=== PATIENT | male | born 1970 | race Caucasian/White ===

== ENCOUNTER 2016-08-07 07:11 | Emergency (ER) | payer OTHER ==
--- NOTE | 2016-08-07 07:20 | CPEKG ---
Heart Rate: 72 RR Interval: 833 P-R Interval: 152 QRSD Interval: 92 QT Interval: 408 QTC Interval: 447 P [place]: 59 QRS [place]: 2 T Wave [place]: 39 EKG Severity - NORMAL ECG - EKG Impression: SINUS RHYTHM Electronically Signed By: José Luis Whitfield 07-Aug-2016 10:34:09
--- NOTE | 2016-08-07 07:21 | EDPHY ---
H & P Time Seen by Provider: 08/07/16 07:20 HPI/ROS: CHIEF COMPLAINT: Almost fainted HISTORY OF PRESENT ILLNESS: This 46-year-old man had cardiac arrest in July 2015 followed by bypass surgery. He did have admission for near syncope in December of this year which was felt to be due to medications. Yesterday he had an episode which lasted a couple minutes at 11:00 a.m. of feeling short of breath with some palpitations while walking at the same trach at the same gym where he was in 2014 when he started having symptoms before his cardiac arrest. Today he was cleaning some blood off of his dental implant when he felt lightheaded and near syncopal and EMS was called. No shortness of breath or chest pain. No actual syncope. REVIEW OF SYSTEMS: Eye: no change in vision ENT: no sore throat Cardiac: no chest pain or syncope Pulmonary: no cough or SOB Abdomen: no vomiting, diarrhea, abdominal pain Musculoskeletal: no back pain Skin: no rash Neuro: no headache Constitutional: no fever, more tired this month than usual. : no urinary symptoms A comprehensive 10 point review of systems is otherwise negative aside from elements mentioned in the history of present illness. PAST MEDICAL HISTORY: Includes reviewing discharge summary dated 12/20/2015. 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 Social history: Nonsmoker, . Wellness Health Coach is Reginald Witt General Appearance: Alert and conversant, cooperative. Eyes: No scleral icterus. ENT, Mouth: Normal mucous membranes. Respiratory: Normal respiratory effort, breath sounds equal, lungs are clear to auscultation. Cardiovascular: Regular rate and rhythm. Gastrointestinal: Abdomen is soft and non tender. Neurological: Alert and oriented x3. Normally conversant. Face symmetric, normal movement and sensation in all extremities. Skin: Warm and dry, no rashes. Musculoskeletal: No peripheral edema and no joint swelling. No calf tenderness. Psychiatric: Not agitated. Emergency Department course/MDM: EKG is normal. Plan for troponin discussion with his tobacco baler. 850: Patient's symptoms from today certainly sound more likely to be vasovagal in nature. He was looking at his bloody dental implant when he felt lightheaded , but did not actually have syncope. His EKG and troponin are negative and he is approximately 1 year out from bypass surgery. Discussed with Reji singh; requesting recommendations on further evaluation given his complicated cardiac history. Dr. Mendoza personally evaluated the patient in the emergency department and recommended discharge with outpatient stress echo arranged for tomorrow. Smoking Status: Never smoked Constitutional: Initial Vital Signs Temperature (C) 36.8 C 08/07/16 07:23 Heart Rate 71 08/07/16 07:23 Respiratory Rate 17 08/07/16 07:23 Blood Pressure 176/110 H 08/07/16 07:23 O2 Sat (%) 96 08/07/16 07:23 O2 Delivery Mode Room Air Allergies/Adverse Reactions: amlodipine besylate [From [facility]] Allergy (Severe, Verified 08/14/15 07:05) LIP EDEMA gluten Allergy (Unknown, Verified 08/14/15 07:05) wheat Allergy (Unknown, Verified 08/14/15 07:05) zolpidem Allergy (Verified 08/07/16 07:18) Home Medications: Medication Instructions Recorded Mycophenolate Mofetil [Cellcept] 1,000 mg PO BID 01/27/15 Clopidogrel Bisulfate [Plavix (*)] 75 mg PO DAILY 08/14/15 Ascorbic Acid [Vitamin C 500 mg 500 mg PO DAILY 12/20/15 (*)] Aspirin [Aspirin 81mg (*)] 81 mg PO DAILY@199912/20/15 Cholecalciferol Vit D3 [Vitamin D3 4,000 units PO DAILY 12/20/151999 units] Diltiazem Cd [Cardizem ER 120 MG 120 mg PO DAILY #0 cap 12/20/15 (*)] Ezetimibe [Zetia 10 MG (*)] 10 mg PO DAILY 12/20/15 Famotidine [Pepcid] 40 mg PO DAILY 12/20/15 Herbals/Supplements -Info Only 1 ea PO DAILY 12/20/15 Metoprolol Tartrate [Lopressor 25 25 mg PO DAILY20 #0 tab 12/20/15 mg (*)] Rosuvastatin Calcium [Crestor 20mg 10 mg PO DAILY 12/20/15 (*)] Sertraline HCl [Zoloft 50mg (*)] 50 mg PO DAILY 12/20/15 Zinc Gluconate [Zinc Chelated 50mg 50 mg PO DAILY 12/20/15 (*)] cycloSPORINE, MODIFIED [Gengraf] 75 mg PO BID 12/20/15 predniSONE 5 mg PO Q2D 12/20/15 Eszopiclone [Lunesta] 08/07/16 Losartan Potassium 08/07/16 Medical Decision Making - Diagnostics EKG Interpretation: 12-lead EKG interpreted by me; official reading is in trace master. My interpretation is sinus rhythm, normal, no acute ischemic changes. Differential Diagnosis: Differential considered including but not limited to vasovagal episode, malignant dysrhythmia, atrial fibrillation, orthostasis. Consult/Admit Bed Type: [address] - Data Points Laboratory Results: Laboratory Results 08/07/16 07:30 08/07/16 07:30 08/07/16 07:30 WBC 6.14 10^3/uL (3.80-9.50) RBC 5.18 10^6/uL (4.40-6.38) Hgb 17.1 g/dL (13.7-17.5) Hct 49.9 % (40.0-51.0) MCV 96.3 fL (81.5-99.8) MCH 33.0 pg (27.9-34.1) MCHC 34.3 g/dL (32.4-36.7) RDW 12.0 % (11.5-15.2) Plt Count 226 10^3/uL (150-400) MPV 9.7 fL (8.7-11.7) Neut % (Auto) 58.1 % (39.3-74.2) Lymph % (Auto) 30.9 % (15.0-45.0) [place] % (Auto) 8.8 % (4.5-13.0) Eos % (Auto) 1.5 % (0.6-7.6) Baso % (Auto) 0.5 % (0.3-1.7) Nucleat RBC Rel Count 0.0 % (0.0-0.2) Absolute Neuts (auto) 3.57 10^3/uL (1.70-6.50) Absolute Lymphs (auto) 1.90 10^3/uL (1.00-3.00) Absolute Monos (auto) 0.54 10^3/uL (0.30-0.80) Absolute Eos (auto) 0.09 10^3/uL (0.03-0.40) Absolute Basos (auto) 0.03 10^3/uL (0.02-0.10) Absolute Nucleated RBC 0.00 10^3/uL (0-0.01) Immature Gran % 0.2 % (0.0-1.1) Immature Gran # 0.01 10^3/uL (0.00-0.10) Sodium 144 mEq/L (134-144) Potassium 3.8 mEq/L (3.5-5.2) Chloride 103 mEq/L (97-110) Carbon Dioxide 27 mEq/l (22-31) Anion Gap 14 mEq/L (8-16) BUN 17 mg/dL (7-23) Creatinine 1.1 mg/dL (0.7-1.3) Estimated GFR > 60 Glucose 91 mg/dL (70-100) Calcium 9.7 mg/dL (8.5-10.4) Total Bilirubin 0.9 mg/dL (0.1-1.4) AST 30 IU/L (17-59) ALT 31 IU/L (21-72) Alkaline Phosphatase 73 IU/L (38-126) Troponin I < 0.012 ng/mL (0-0.034) Total Protein 8.1 g/dL (6.3-8.2) Albumin 4.9 g/dL (3.5-5.0) Departure - Departure Disposition: Home, Routine, Self-Care Clinical Impression: Near syncope Instructions: Near Syncope (ED) Additional Instructions: Stress test scheduled tomorrow at 1:15 p.m., instructions per Dr. Mendoza. Referrals: Reginald Witt MD [Medical Doctor] - As per Instructions
[2016-08-07 07:40] LABS: % IMMATURE GRANULYOCYTES 0.2 % (0.0-1.1); ABSOLUTE IMMATURE GRANULOCYTES 0.01 10^3/uL (0.00-0.10); ADD DIFF? NO; ADD MORPH? NO; ADD SCAN? NO; ATYPICAL LYMPHOCYTE FLAG 0 (0-99); FRAGMENT RBC FLAG 0 (0-99); HEMATOCRIT 49.9 % (40.0-51.0); HEMOGLOBIN 17.1 g/dL (13.7-17.5); LEFT SHIFT FLG 0 (0-99); LIPEMIA HEMOLYSIS FLAG 90 (0-99); MEAN CELL HEMOGLOBIN CONCENTR. 34.3 g/dL (32.4-36.7); MEAN CELL VOLUME 96.3 fL (81.5-99.8); MEAN PLATELET VOLUME 9.7 fL (8.7-11.7); PLATELET CLUMPS FLAG 0 (0-99); PLATELET COUNT 226 10^3/uL (150-400); RED BLOOD CELL COUNT 5.18 10^6/uL (4.40-6.38)
[2016-08-07 08:04] LABS: ALANINE AMINOTRANSFERASE 31 IU/L (21-72); ALBUMIN 4.9 g/dL (3.5-5.0); ALKALINE PHOSPHATASE 73 IU/L (38-126); ANION GAP 14 mEq/L (8-16); ASPARTATE AMINOTRANSFERASE 30 IU/L (17-59); BILIRUBIN,TOTAL 0.9 mg/dL (0.1-1.4); CALCIUM 9.7 mg/dL (8.5-10.4); CARBON DIOXIDE 27 mEq/l (22-31); CHLORIDE 103 mEq/L (97-110); CREATININE 1.1 mg/dL (0.7-1.3); GLOMERULAR FILTRATION RATE > 60; GLUCOSE 91 mg/dL (70-100); POTASSIUM 3.8 mEq/L (3.5-5.2); SODIUM 144 mEq/L (134-144); TOTAL PROTEIN 8.1 g/dL (6.3-8.2)
[2016-08-07 08:14] LABS: TROPONIN I < 0.012 ng/mL (0-0.034)
[2016-08-07 08:42] VITALS: O2SAT 95
[2016-08-07 10:07] VITALS: RESP 18
[2016-08-07 10:33] VITALS: BP 139/65; PULSE 78; TEMP 97.9
== END 2016-08-07 10:36 | disposition home or self-care (01) ==
LOC: EDUNIT#
DX: R55 Syncope and collapse (principal); I25.2 Old myocardial infarction; Z79.82 Long term (current) use of aspirin; Z95.1 Presence of aortocoronary bypass graft

== ENCOUNTER → 2016-10-03 | Outpatient (CLI) | payer OTHER | LOC: FCPNEURO 21:30 | PROVIDERS: ATTEND Student in an Organized Health Care Education/Training Program | DX: G47.33 Obstructive sleep apnea (adult) (pediatric) (principal) ==

== ENCOUNTER → 2017-03-17 | Outpatient (CLI) | payer OTHER | LOC: BRMIMAGING 13:47 | PROVIDERS: ATTEND Internal Medicine Nephrology | DX: Z13.820 Encounter for screening for osteoporosis (principal); Z79.52 Long term (current) use of systemic steroids ==

== ENCOUNTER 2017-04-06 05:47 | Inpatient (IN) | payer OTHER ==
[2017-04-06] MEDS ORDERED: NS 1,000 ML IV ONE (05:56)
[2017-04-06] MEDS ORDERED: ASPIRIN 81 MG CHEWABLE TAB PO ONE (05:56)
[2017-04-06] MEDS ORDERED: ONDANSETRON 4 MG/2 ML VIAL IVP ONE (05:56)
--- NOTE | 2017-04-06 05:59 | EDPHY ---
H & P HPI/ROS: HPI CHIEF COMPLAINT: Nausea, diaphoresis HISTORY OF PRESENT ILLNESS: This patient 47-year-old male, he presents to the emergency room with nausea, diaphoresis. He states nausea woke him up around 430 in the morning. He then states he tried to go back to sleep. Fell back to sleep for short period time woke up with further nausea and diaphoresis. Due to the nausea and diaphoresis and remembering how he felt with his ID it felt similar so he decided come to the emergency room for evaluation. He has no chest pain or shortness of breath. He does have significant past medical history for coronary artery disease with 1 stent, and then CABG. Past Medical History: Coronary artery disease with stent, Alport syndrome Past Surgical History: CABG, PTCA, kidney transplant Social History: Denies daily use of drugs alcohol tobacco products Family History: Noncontributory ROS REVIEW OF SYSTEMS: A comprehensive 10 point review of systems is otherwise negative aside from elements mentioned in the history of present illness. Exam Constitutional appears well nontoxic, triage nursing summary reviewed, vital signs reviewed, awake/alert. Eyes normal conjunctivae and sclera, EOMI, PERRLA. HENT normal inspection, atraumatic, moist mucus membranes, no epistaxis, neck supple/ no meningismus, no raccoon eyes. Respiratory clear to auscultation bilaterally, normal breath sounds, no respiratory distress, no wheezing. Cardiovascular rate normal, regular rhythm, no murmur, no edema, distal pulses normal. Gastrointestinal soft, non-tender, no rebound, no guarding, normal bowel sounds, no distension, no pulsatile mass. Genitourinary no CVA tenderness. Musculoskeletal no midline vertebral tenderness, full range of motion, no calf swelling, no tenderness of extremities, no meningismus, good pulses, neurovascularly intact. Skin pink, warm, & dry, no rash, skin atraumatic. Neurologic awake, alert and oriented x 3, AAOx3, moves all 4 extremities equally, motor intact, sensory intact, CN II-XII intact, normal cerebellar, normal vision, normal speech. Psychiatric normal mood/affect. Heme/Lymph/Immune no lymphadenopathy. Differential diagnosis includes but is not limited to: ACS, atypical chest pain , pneumothorax, pneumonia, pulmonary embolism, aortic dissection, congestive heart failure, tumor, musculoskeletal pain, esophageal pain, GERD, peptic ulcer disease, pancreatitis Medical Decision Making: IV establishment, obtain EKG, blood work, electrolytes , rule out acute coronary syndrome, full business director, full-dose aspirin. Zofran for nausea IV fluid bolus. Re-evaluation: EKG interpretation by me on record in [employer] system. Impression time of EKG 5:59 a.m., this is sinus rhythm rate of 55 Q-waves present inferior leads. I do not appreciate acute ischemia. When I compare this EKG dated back to his old EKG on 08/07/2016 is unchanged. 0723AM: Extensive discussion with this patient about his workup. His EKG is unchanged from his previous EKG had on appreciate acute ischemia on his EKG today. Chest x-ray is unremarkable, troponin negative. Vital signs are stable. He has no chest pain. He is not nauseous he is not diaphoretic however given his history and clinical presentation similar to previous time he had a stent I think it is reasonable to observe him today. And will be to observe him in the hospital today for chest pain. Serial enzymes. If he remains stable with no ongoing nausea diaphoresis or chest pain he can go home. 0724AM: I spoke with Dr. Pham, patient agrees to admit this patient. Source: Patient - Personal History Tetanus Vaccine Date: <10YRS - Medical/Surgical History Hx Asthma: No Hx Chronic Respiratory Disease: No Hx Diabetes: No Hx Cardiac Disease: Yes Hx Renal Disease: Yes Hx Cirrhosis: No Hx Alcoholism: No Hx HIV/AIDS: No Hx Splenectomy or Spleen Trauma: No Other PMH: ID 07/14/15. Alport syndome. Kidney transplant on immunosuppression. Hypertension. Hyperlipidemia. Bilateral hernia repair - Social History Smoking Status: Never smoked Constitutional: Initial Vital Signs Temperature (C) 36.6 C 04/06/17 05:58 Heart Rate 57 L 04/06/17 05:58 Respiratory Rate 16 04/06/17 05:58 Blood Pressure 115/71 04/06/17 05:58 O2 Sat (%) 99 04/06/17 05:58 O2 Delivery Mode Room Air O2 (L/minute) 2 Allergies/Adverse Reactions: amlodipine besylate [From [facility]] Allergy (Severe, Verified 08/14/15 07:05) LIP EDEMA gluten Allergy (Unknown, Verified 08/14/15 07:05) wheat Allergy (Unknown, Verified 08/14/15 07:05) zolpidem Allergy (Verified 08/07/16 07:18) Home Medications: Medication Instructions Recorded Diltiazem Cd [Cardizem ER 120 MG 120 mg PO DAILY #0 cap 12/20/15 (*)] Ezetimibe [Zetia 10 MG (*)] 10 mg PO DAILY 12/20/15 Herbals/Supplements -Info Only 1 ea PO DAILY 12/20/15 Sertraline HCl [Zoloft 50mg (*)] 50 mg PO DAILY 12/20/15 Eszopiclone [Lunesta] 1 mg PO HS 08/07/16 Aspirin EC [Aspirin EC 81 mg (*)] 81 mg PO DAILY 04/06/17 Losartan Potassium [Cozaar 25 mg 25 mg PO HS 04/06/17 (*)] Mycophenolate Mofetil [Cellcept] 1,000 mg PO BID 04/06/17 Niacin [Slo-Niacin] 1,500 mg PO HS 04/06/17 Rosuvastatin Calcium [Crestor 10mg 10 mg PO DAILY 04/06/17 (RX)] cycloSPORINE, MODIFIED [Neoral 25 75 mg PO BID 04/06/17 MG (*)] predniSONE 5 mg PO Q48H 04/06/17 Medical Decision Making - Data Points Laboratory Results: Laboratory Results 04/06/17 06:15 04/06/17 06:15 Medications Given: Aspirin Buffered (Aspirin Ec) 81 mg PO DAILY [facility] Stop: 10/04/17 09:29 Last Admin: 04/07/17 20:48 Dose: 81 mg Cyclosporine (Neoral) 75 mg PO BID [facility] Stop: 10/03/17 09:29 Last Admin: 04/07/17 20:48 Dose: 75 mg Diltiazem HCl (Cardizem Er Q24hr) 120 mg PO DAILY [facility] Stop: 10/03/17 09:29 Last Admin: 04/07/17 10:29 Dose: 120 mg Ezetimibe (Zetia) 10 mg PO DAILY [facility] Stop: 10/04/17 08:59 Last Admin: 04/07/17 10:29 Dose: 10 mg Losartan Potassium (Cozaar) 25 mg PO HS [facility] Stop: 10/03/17 20:59 Last Admin: 04/07/17 20:48 Dose: 25 mg Miscellaneous Medication (Eszopiclone [Lunesta]) 1 mg PO HS [facility] Stop: 10/03/17 20:59 Last Admin: 04/06/17 20:59 Dose: 1 mg Miscellaneous Medication (Niacin [Slo-Niacin]) 1,500 mg PO HS [facility] Stop: 10/03/17 20:59 Last Admin: 04/07/17 20:49 Dose: 3 cap Mycophenolate Mofetil (Cellcept) 1,000 mg PO BID [facility] Stop: 10/03/17 20:59 Last Admin: 04/07/17 20:48 Dose: 1,000 mg Ondansetron HCl (Zofran) 4 mg IVP Q4 PRN PRN Reason: Nausea/Vomiting, Can't Take PO Stop: 10/03/17 09:30 Last Admin: 04/06/17 22:32 Dose: 4 mg Prednisone (Prednisone) 5 mg PO Q48H [facility] Stop: 10/03/17 09:29 Last Admin: 04/06/17 11:31 Dose: 5 mg Rosuvastatin Calcium (Crestor) 10 mg PO DAILY [facility] Stop: 10/03/17 09:29 Last Admin: 04/07/17 10:29 Dose: 10 mg Sertraline HCl (Zoloft) 50 mg PO DAILY [facility] Stop: 10/03/17 09:29 Last Admin: 04/07/17 10:29 Dose: 50 mg Discontinued Medications Aspirin (Aspirin) 324 mg PO EDNOW ONE Stop: 04/06/17 05:57 Last Admin: 04/06/17 06:11 Dose: 324 mg Sodium Chloride (Ns) 1,000 mls @ 0 mls/hr IV EDNOW ONE; Wide Open PRN Reason: Protocol Stop: 04/06/17 05:57 Last Admin: 04/06/17 06:11 Dose: 1,000 mls Sodium Chloride (Ns) 1,000 mls @ 100 mls/hr IV CONT [facility] Stop: 10/03/17 09:29 Last Admin: 04/06/17 22:23 Dose: 1,000 mls Ondansetron HCl (Zofran) 4 mg IVP EDNOW ONE Stop: 04/06/17 05:57 Last Admin: 04/06/17 06:12 Dose: 4 mg Departure - Departure Disposition: [facility] Clinical Impression: Nausea, Diaphoresis Condition: Good
--- NOTE | 2017-04-06 06:03 | CPEKG ---
Heart Rate: 55 RR Interval: 1091 P-R Interval: 156 QRSD Interval: 84 QT Interval: 428 QTC Interval: 410 P [place]: 56 QRS [place]: 25 T Wave [place]: 45 EKG Severity - BORDERLINE ECG - EKG Impression: SINUS RHYTHM EKG Impression: BORDERLINE INFERIOR Q WAVES Electronically Signed By: Armond Avila 06-Apr-2017 07:28:48
[2017-04-06 06:30] LABS: % IMMATURE GRANULYOCYTES 0.3 % (0.0-1.1); ABSOLUTE IMMATURE GRANULOCYTES 0.03 10^3/uL (0.00-0.10); ADD DIFF? NO; ADD MORPH? NO; ADD SCAN? NO; ATYPICAL LYMPHOCYTE FLAG 0 (0-99); FRAGMENT RBC FLAG 0 (0-99); HEMATOCRIT 46.5 % (40.0-51.0); HEMOGLOBIN 15.7 g/dL (13.7-17.5); LEFT SHIFT FLG 0 (0-99); LIPEMIA HEMOLYSIS FLAG 90 (0-99); MEAN CELL HEMOGLOBIN 32.6 pg (27.9-34.1); MEAN CELL HEMOGLOBIN CONCENTR. 33.8 g/dL (32.4-36.7); MEAN CELL VOLUME 96.7 fL (81.5-99.8); PLATELET CLUMPS FLAG 10 (0-99); PLATELET COUNT 185 10^3/uL (150-400); RED BLOOD CELL COUNT 4.81 10^6/uL (4.40-6.38); RED CELL DISTRIBUTION WIDTH 12.4 % (11.5-15.2)
[2017-04-06 06:38] LABS: APTT 21.3 SEC (23.0-38.0); INR 1.09 (0.83-1.16)
[2017-04-06 06:39] LABS: ALANINE AMINOTRANSFERASE 32 IU/L (21-72); ALBUMIN 4.1 g/dL (3.5-5.0); ALKALINE PHOSPHATASE 53 IU/L (38-126); ANION GAP 13 mEq/L (8-16); ASPARTATE AMINOTRANSFERASE 28 IU/L (17-59); BILIRUBIN,TOTAL 0.8 mg/dL (0.1-1.4); BILIRUBIN-CONJUGATED 0.2 mg/dL (0.0-0.5); BILIRUBIN-UNCONJUGATED 0.6 mg/dL (0.0-1.1); CARBON DIOXIDE 25 mEq/l (22-31); CHLORIDE 104 mEq/L (97-110); GLOMERULAR FILTRATION RATE > 60; GLUCOSE 104 mg/dL (70-100); MAGNESIUM 1.9 mg/dL (1.6-2.3); SODIUM 142 mEq/L (134-144); TOTAL PROTEIN 6.8 g/dL (6.3-8.2)
[2017-04-06 06:51] LABS: CREATINE KINASE-MB FRACTION 0.26 ng/mL (0.00-3.19); TROPONIN I < 0.012 ng/mL (0.000-0.034)
[2017-04-06] MEDS ORDERED: NON-FORMULARY NEW DRUG (Mycophenolate Mofetil [Cellcept] 1,000 MG) PO SCH (09:30)
[2017-04-06] MEDS ORDERED: ACETAMINOPHEN 325 MG TAB PO PRN (09:31)
[2017-04-06] MEDS ORDERED: PROMETHAZINE HCL 25 MG/ML INJ IVP PRN (09:31)
[2017-04-06] MEDS: ONDANSETRON 4 MG/2 ML VIAL IVP PRN ×3 (09:56→22:32)
[2017-04-06] MEDS: NS 1,000 ML IV SCH ×2 (10:07→22:23)
--- NOTE | 2017-04-06 10:28 | GHP ---
[f rep st] HISTORY AND PHYSICAL DATE OF ADMISSION: 04/06/2017 CHIEF COMPLAINT: Nausea and diaphoresis. HISTORY: The patient is a 47-year-old male who has a history of cardiac arrest in July 2015, wh ich was due to a right coronary artery occlusion for which he underwent stenting. He had multivesse l disease, wore a LifeVest for a month and came back for an elective CABG in August 2015. He never had any chest pain prior to his being diagnosed with cardiac disease, and his main symptom was diap horesis and feeling hot and faint. The patient now represents to the hospital with similar symptoms prior to his MT. He woke up in the middle of the night at 4 o'clock in the morning with acute onse t of severe nausea and diaphoresis. He had the same sweaty, hot, faint feeling he had prior to his arrest. This passed after a few minutes and he went back to sleep. He was awoken a second time wit h similar episodes again, at which point he came to the emergency room. He has had these similar spells a few times after his bypass surgery, and they have improved with so me med readjustment. He did have a stress test as an outpatient in August. His blood pressure has recently been running quite low. He has had no vomiting or abdominal pain. He had a normal bowel movement this morning. There has been no shortness of breath. He, in general, is feeling under the weather and fatigued for the last couple of days. [place] and he fe els a little dehydrated. He has no known sick contacts, although his boss had a similar GI illness recently, but she has been mostly out of town so he is not sure if he can call that a contact. PAST MEDICAL HISTORY: 1. Coronary artery disease status post CABG, August 2015, after a cardiac arrest, with successful resuscitation because he arrested after arrival to the emergency room. 2. End-stage renal disease secondary to Alport's, status post kidney transplant, now with normal re nal function. 3. Hypertension. 4. Hyperlipidemia. 5. Congenital deafness. MEDICATIONS: Please see computer record for full detailed list. ALLERGIES: To amlodipine, which caused angioedema. SOCIAL HISTORY: No smoking. Rare alcohol. He is with 2 kids. Works as a [employer]. REVIEW OF SYSTEMS: Complete review of systems obtained. Review of systems is negative regarding co nstitutional, HEENT, GI, pulmonary, cardiovascular, , hematology, skin, musculoskeletal, endocrine and psych, except for positives and negatives as noted in the HPI. FAMILY HISTORY: Reviewed and noncontributory to presenting complaint. PHYSICAL EXAMINATION: GENERAL: A well-developed, well-nourished male, in no acute distress. VITAL SIGNS: Temperature 36.6, pulse 74, blood pressure 126/74, saturating 96% on room air. HEENT: Nor mal conjunctivae. Pupils react to light. ENT: Normal ears and nose. Congenital deafness. Normal teeth. Oropharynx moist. NECK: Trachea midline. No thyromegaly. CHEST: Normal effort. LUNGS: Clear to auscultation bilaterally. CARDIOVASCULAR SYSTEM: Regular rate and rhythm. No murmur. No lower extremity edema. ABDOMEN: Soft, nontender. No hepatosplenomegaly. His transplant kidney is palpated in the right lower quadrant. SKIN: Warm, dry and intact, without rash. MUSCULOSKELET AL: No cyanosis or clubbing. Strength is 5/5 upper and lower extremities. NEUROLOGIC: Cranial ne rves intact. Normal sensation to light touch. PSYCHIATRIC: Alert and oriented x3. Normal mood an d affect. Normal judgment and insight. Normal memory. LABORATORY DATA: White count 10.45, hematocrit 46.5, platelets 185. Sodium 142, potassium 4.0, chl oride 104, bicarb 25, BUN 18, creatinine 1.0, glucose 104. LFTs are negative. Troponins negative. BNP is 191. IMAGING: EKG reviewed by me. My personal interpretation is normal sinus rhythm. No ST or T-wave c hanges. Chest x-ray is negative. ASSESSMENT AND PLAN: 1. Nausea and diaphoresis. This is consistent with his previous anginal equivalent. This very wel l may be a viral gastrointestinal illness. However, given his history, also need to consider cardia c ischemia. He has had a recent CABG and graft failure is a possibility. We will follow serial tro ponins and EKGs. If they remain negative, will order an exercise nuclear medicine stress test for t he morning. 2. Coronary artery disease status post CABG in August 2015. Continue his medication regimen, incl uding aspirin, losartan and diltiazem. 3. Kidney transplant secondary to Alport's. He now has normal renal function. Continue his usual immunosuppressants, including cyclosporine, prednisone and mycophenolate. 4. Deep venous thrombosis prophylaxis. He is low risk. Will hold off on pharmacologic prophylaxis at this time. COR STATUS: Full. ADMISSION STATUS: Will admit to observation. If cardiac evaluation is negative, he can maybe go ho me tomorrow. /[id number]/MODL
[2017-04-06] MEDS: ROSUVASTATIN CALCIUM 10 MG TAB PO SCH (11:30)
[2017-04-06] MEDS: DILTIAZEM CD 120 MG CAP PO SCH (11:30)
[2017-04-06] MEDS: SERTRALINE HCL 50 MG TAB PO SCH (11:31)
[2017-04-06] MEDS: predniSONE 5 MG TAB PO SCH (11:31)
[2017-04-06] MEDS: CYCLOSPORINE, MODIFIED 25 MG CAP (NEORAL) PO SCH ×2 (11:33→20:59)
[2017-04-06] MEDS: MYCOPHENOLATE MOFETIL 250 MG CAP PO SCH ×2 (11:34→20:59)
--- NOTE | 2017-04-06 12:31 | ASMTCMCOM ---
CM Note CM Note Notes: Reviewed chart, spoke w/RN. No case management d/c needs identified d/t pt age and activity levels prior to admission. Case Management d/c poc: home independent w/follow up as directed by MD. Case Management available if needs change. Date Signed: 04/06/2017 12:30 PM Electronically Signed By:Tanya Santiago
[2017-04-06] MEDS: ESZOPICLONE 1 MG PO SCH (20:59)
[2017-04-06] MEDS: NIACIN 500 MG PO SCH (20:59)
[2017-04-06] MEDS: LOSARTAN POTASSIUM 25 MG TAB PO SCH (21:00)
--- NOTE | 2017-04-07 10:14 | CPR ---
[f rep st] NONINVASIVE CARDIAC PROCEDURE REPORT DATE OF PROCEDURE: 04/07/2017 PROCEDURE PERFORMED: Full Reji treadmill stress test with Cardiolite images. INDICATIONS: Tiredness and extreme diaphoresis in a gentleman with previous bypass surgery. CONSENT: Signed. Risks, benefits, and alternatives discussed with the patient. He wishes to proce ed. TECHNICAL DIFFICULTIES: None. DESCRIPTION OF PROCEDURE AND RESULTS: The patient exercised on a full Reji treadmill protocol for 9 minutes, reaching a target heart rate of 145 beats per minute which represented 84% of his age pre dicted maximum heart rate. He had no chest pain with exercise. His initial EKG demonstrated normal sinus rhythm with nonspecific ST depression less than 1 mm. At peak exercise, he had 1 to 1.5 [address] o f [address] depression in the inferior lateral leads. His peak blood pressure was 172/60. He h ad rare single PVCs with exercise. All of his vital signs returned to normal. At the end of recove ry. Of note, 30 millicuries of technetium-99m was injected 1 minute before peak exercise. Cardiolite images are pending at time of dictation. FINAL IMPRESSION: 1. Positive electrocardiogram criteria for cardiac ischemia. 2. Clinically no chest pain with exercising for 9 minutes. 3. Good exercise tolerance with no angina. 4. Normal blood pressure response to exercise. 5. Rare premature ventricular contractions/complexes with exercise. 6. Cardiolite images pending. /[id number]/MODL
[2017-04-07] MEDS: SERTRALINE HCL 50 MG TAB PO SCH (10:29)
[2017-04-07] MEDS: ROSUVASTATIN CALCIUM 10 MG TAB PO SCH (10:29)
[2017-04-07] MEDS: EZETIMIBE 10 MG TAB PO SCH (10:29)
[2017-04-07] MEDS: CYCLOSPORINE, MODIFIED 25 MG CAP (NEORAL) PO SCH ×2 (10:29→20:48)
[2017-04-07] MEDS: DILTIAZEM CD 120 MG CAP PO SCH (10:29)
[2017-04-07] MEDS: MYCOPHENOLATE MOFETIL 250 MG CAP PO SCH ×2 (10:30→20:48)
[2017-04-07] MEDS: ASPIRIN EC 81 MG TAB PO SCH ×2 (10:37→20:48)
--- NOTE | 2017-04-07 16:14 | HOSPPROG ---
Hospitalist Progress Note Assessment/Plan: * CAD - CABG Aug 2015 - now presenting with anginal equivalent -infarct vs. ischemia inferior wall - needs additional rest images in am -ETT with EKG changes c/w ischemia -d/w Dr. Lopez - cath if defect found to be reversible * HTN - continue losartan, diltiazem * Alport's s/p kidney tx - normal renal function -chronic immunosuppression * Depression - Zoloft Subjective: No more CP, upset regarding need to stay in hospital one more night Objective: Vital Signs Temp Pulse Resp BP Pulse Ox 36.7 C 62 12 121/68 H 96 04/07/17 12:22 04/07/17 12:22 04/07/17 12:22 04/07/17 12:22 04/07/17 12:22 PT 14.0 SEC (12.0-15.0) 04/06/17 06:15 INR 1.09 (0.83-1.16) 04/06/17 06:15 d/w Dr. Reilly -radiology - inferior wall with abnormality - needs follow-up rest images tele - NSR - Physical Exam Constitutional: no apparent distress, appears nourished, not in pain Cardiovascular: regular rate and rhythym, no murmur, rub, or gallop Respiratory: no respiratory distress, no rales or rhonchi, clear to auscultation Gastrointestinal: normoactive bowel sounds, soft, non-tender abdomen, no palpable masses Skin: no rashes or abrasions, no fluctuance, no induration Neurologic: AAOx3, sensation intact bilaterally Psychiatric: interacting appropriately, not anxious, not encephalopathic, thought process linear ICD10 Worksheet Patient Problems: Problems Problem Status Onset Diaphoresis Acute Nausea Acute Near syncope Acute S/P CABG x 5 Acute Alport's syndrome Chronic CAD (coronary artery disease) Chronic Immunosuppression Chronic Presence of drug coated stent in right coronary artery Chronic Renal transplant, status post Chronic
[2017-04-07 20:03] VITALS: RESP 16
[2017-04-07] MEDS: LOSARTAN POTASSIUM 25 MG TAB PO SCH (20:48)
[2017-04-07] MEDS: NIACIN 500 MG PO SCH (20:49)
[2017-04-07] MEDS: ESZOPICLONE 1 MG PO SCH (21:55)
[2017-04-08 08:02] VITALS: TEMP 97.9
[2017-04-08] MEDS: EZETIMIBE 10 MG TAB PO SCH (12:04)
[2017-04-08] MEDS: ROSUVASTATIN CALCIUM 10 MG TAB PO SCH (12:04)
[2017-04-08] MEDS: SERTRALINE HCL 50 MG TAB PO SCH (12:05)
[2017-04-08] MEDS: DILTIAZEM CD 120 MG CAP PO SCH (12:05)
[2017-04-08] MEDS: predniSONE 5 MG TAB PO SCH (12:05)
[2017-04-08] MEDS: MYCOPHENOLATE MOFETIL 250 MG CAP PO SCH (12:06)
[2017-04-08] MEDS: CYCLOSPORINE, MODIFIED 25 MG CAP (NEORAL) PO SCH (12:06)
[2017-04-08] MEDS: ASPIRIN EC 81 MG TAB PO SCH (12:15)
[2017-04-08 12:17] VITALS: BP 138/90; PULSE 57; O2SAT 97
--- NOTE | 2017-04-09 05:34 | GDS ---
[f rep st] DISCHARGE SUMMARY DISCHARGE DIAGNOSES: 1. Anginal equivalent of nausea and diaphoresis. 2. Coronary artery disease, status post coronary artery bypass graft. 3. Hypertension. 4. [place], status post kidney transplant, on chronic immunosuppression. 5. Depression. HISTORY: The patient is a 47-year-old male with a history of a CABG in August 2015, after surviving a cardiac arrest in the emergency room. 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 He presented to the hospital with recurrence of his anginal equivalent which is n ausea and diaphoresis. Troponins and EKGs were serially performed and negative. He did get an exerc ise treadmill test and did have EKG changes consistent with ischemia by EKG criteria. This, however, was followed up with nuclear images where no reversible defect could be found. I spoke with Dr. Justine casillas, correctional therapy director for Cardiology, and he felt the nuclear images were more reliable than the EKG changes on stress testing and thought no further cardiac catheterization was needed. The patient will follow u p closely with his apparel embroidery digitizer, Dr. Mendoza. DISCHARGE MEDICATIONS: Please see computer record for full detailed list. There are no new medicati ons given at the time of hospital discharge. DISCHARGE INSTRUCTIONS: Follow up with Dr. Mendoza, Cardiology. He already has an appointment chad ruiz. /[id number]/[id number]
== END 2017-04-08 12:29 | disposition home or self-care (01) | DRG 303 ==
LOC: EDUNIT# → F2W 09:00 → OBSVTOIN 04-07 14:10
PROVIDERS: ADMIT Student in an Organized Health Care Education/Training Program; ATTEND Internal Medicine
DX: I25.118 Atherosclerotic heart disease of native coronary artery with other forms of angina pectoris (principal); I25.2 Old myocardial infarction; Z86.74 Personal history of sudden cardiac arrest; Z95.5 Presence of coronary angioplasty implant and graft; Z95.1 Presence of aortocoronary bypass graft; I10 Essential (primary) hypertension; Z94.0 Kidney transplant status; Z79.899 Other long term (current) drug therapy; F32.9 Major depressive disorder, single episode, unspecified; E78.5 Hyperlipidemia, unspecified; H90.5 Unspecified sensorineural hearing loss
CPT/HCPCS: 96374; A9500; G0378; J2405; J7515